=== PATIENT | male | born 1950 | race African-American/Black ===

== ENCOUNTER 2017-03-11 13:48 | Emergency (ER) | payer MEDICARE, OTHER ==
[~2017-03-11] VITALS: Ht 170.2 cm; Wt 54.4 kg
[2017-03-11 13:50] VITALS: BP 113/78
[2017-03-11] MEDS ORDERED: Ketorolac 30mg Inj IV ONE (14:00)
--- NOTE | 2017-03-11 14:06 | Emergency Room Report ---
History of Present Illness General Chief Complaint: Abdominal Pain Source: Patient Present Illness HPI [id number] with 4 weeks right sided abd pain. Intermittent, sharp. Non radiating. Assoc with intermittent constipation but had 2BMs yesterday Denies assoc nausea/vomiting, diarrhea, chest pain, SOB, headache, urinary complaints Denies other medical problems Takes Tylenol occasionally No previous surgery States he went to 3 hospitals in last 2 weeks - last was [facility]. Said labwork/CT done. "They didnt tell me nothing." Has no discharge papers. Doesnt know any results. Denies ETOH, drug use. Allergies: Coded Allergies: No Known Allergies (Unverified , 03/11/17) Patient History Past Medical History: none Past Surgical History: none Pertinent Family History: none Social History: Denies: smoking, alcohol use, drug use Immunizations: UTD Reviewed Nursing Documentation: PMH: Agreed, PSxH: Agreed Nursing Documentation-PMH Past Medical History: No Stated History Review of Systems All Other Systems: negative except mentioned in HPI Physical Exam Vital Signs Date Time Temp Pulse Resp B/P (MAP) Pulse Ox O2 Delivery O2 Flow Rate FiO2 03/11/17 13:40 97.9 88 16 116/78 99 Room Air Sp02 EP Interpretation: reviewed, normal General Appearance: normal inspection, well appearing, no apparent distress, alert, GCS 15, non-toxic, cachetic, thin, other - multiple enlarged joints, large skull, hands, feet Head: normocephalic, atraumatic Eyes: bilateral eye PERRL, bilateral eye EOMI ENT: normal ENT inspection, hearing grossly normal, normal voice Neck: normal inspection, full range of motion, supple, no bony tend Respiratory: normal inspection, lungs clear, normal breath sounds, no respiratory distress, no retraction, no wheezing Cardiovascular #1: regular rate, rhythm, no edema Gastrointestinal: normal inspection, normal bowel sounds, non tender, soft, no mass, no organomegaly, non-distended, no guarding, no hernia, no pulsatile mass , no rebound Genitourinary: no CVA tenderness Musculoskeletal: normal inspection, back normal, normal range of motion, Obey' s Sign negative Neurologic: normal inspection, alert, oriented x3, responsive, junior assistant manager III-XII nml as tested, motor strength/tone normal, speech normal Psychiatric: normal inspection, judgement/insight normal, mood/affect normal Medical Decision Making Medicare Attestation I Heaven Mari MD hereby attest that the medical record entry for date of service, 03/11/17 accurately reflects signatures/notations that I made in my capacity as MD when I treated/diagnosed the above listed Medicare beneficiary. I attest that this information is true, accurate and complete to the best of my knowledge. I understand that any falsification, omission, or concealment of material fact may subject me to administrative, civil, or criminal liability. This patient warrants hospital admission for extreme of age and has a condition that cannot be treated as outpatient. Diagnostic Impression: Primary Impression: Abdominal pain Qualified Codes: R10.84 - Generalized abdominal pain Additional Impressions: Hypercalcemia Infection due to trichomonas ER Course Generalized abd pain for 4 weeks Vitals stable. Afebrile Abd is non-focal 3 previous ED visits. [facility] faxed for records but not sent to ED by time of admission at 408pm. ?ST elevation in v3-4. Short QTc. Wide QRS. No reciprocal changes. Troponin 0. ASA given Spoke to URSULA at [facility] for concern for STEMI; did not think it warranted STEMI transfer; recommended I call transfer center for [facility] referral Spoke to Dr Ruiz from [facility] at [facility] who thinks interventricular delay/ wide QRS and delayed repol d/t hyperCa more likely cause of the EKG changes vs ACS especially given patient's habitus/history noted previously, duration of symptoms, and lack of active Chest pain/SOB currently. Serial ECG similar. No dynamic changes. Unlikely acute bacterial/surgical process given afebrile, no leuks, LFTs and Lipase normal. Well appearing UA for trichomonas - tx in ED Accepted for transfer to [facility] by Dr Phillips at 432pm EKG Diagnostic Results Rate: normal Rhythm: NSR ST Segments: other - Deep S waves with ST elevation in v3-4. No reciprocal changes ASA given to the pt in ED: No Rhythm Strip Diag. Results EP Interpretation: yes Rate: 85 Rhythm: NSR, no PVC's, no ectopy Chest X-Ray Diagnostic Results Chest X-Ray Diagnostic Results : Chest X-Ray Ordered: Yes # of Views/Limited/Complete: 1 View Indication: Chest Pain EP Interpretation: Yes Interpretation: no consolidation, no effusion, no pneumothorax, no acute cardiopulmonary disease Impression: No acute disease Interpreting ER Provider: Dr Heaven Mari MD Last Vital Signs Date Time Temp Pulse Resp B/P (MAP) Pulse Ox O2 Delivery O2 Flow Rate FiO2 03/11/17 13:40 97.9 88 16 116/78 99 Room Air Status: improved Disposition: ADMITTED INPATIENT Condition: HEAVEN Sylvester M.D. Mar 11, 2017 14:06
[2017-03-11 14:52] LABS: BASOPHILS % (AUTO) 0.7 % (0.0-2.0); EOSINOPHILS % (AUTO) 0.5 % (0.0-3.0); LYMPHOCYTES % (AUTO) 22.3 % (20.0-45.0); MEAN CORPUSCULAR HEMOGLOBIN 33.9 PG (27.0-31.0); MEAN CORPUSCULAR VOLUME 103 FL (80-99); MEAN PLATELET VOLUME 4.3 FL (6.5-10.1); MONOCYTES % (AUTO) 3.3 % (1.0-10.0); NEUTROPHILS % (AUTO) 73.3 % (45.0-75.0); PLATELET COUNT 309 K/UL (150-450); RED BLOOD COUNT 3.27 M/UL (4.70-6.10); RED CELL DISTRIBUTION WIDTH 11.8 % (11.6-14.8); TROPONIN I < 0.30 ng/mL (<=0.30); WHITE BLOOD COUNT 6.4 K/UL (4.8-10.8)
[2017-03-11 14:56] LABS: ALANINE AMINOTRANSFERASE 6 U/L (3-41); ALBUMIN/GLOBULIN RATIO 1.1 (1.0-2.7); ANION GAP 14 (5-15); ASPARTATE AMINO TRANSFERASE 15 U/L (5-40); CARBON DIOXIDE 24 mEQ/L (20-30); CHLORIDE 100 mEQ/L (98-107); CREATININE 1.1 mg/dL (0.7-1.2); GLOMERULAR FILTRATION RATE > 60 mL/min (>60); HEMOLYSIS 49; LIPASE 13 U/L (< 60); POTASSIUM 3.7 mEQ/L (3.4-4.9); SODIUM 138 mEQ/L (135-145)
[2017-03-11 14:57] LABS: CALCIUM 15.3 mg/dL (8.6-10.2)
[2017-03-11 14:59] LABS: APPEARANCE,URINE CLEAR; KETONES,URINE NEGATIVE (NEGATIVE); LEUKOCYTE ESTERASE ,URINE 2+ (NEGATIVE); NITRITE,URINE NEGATIVE (NEGATIVE); PH,URINE 6 (4.5-8.0); PROTEIN,URINE 1+ (NEGATIVE); UROBILINOGEN,URINE NORMAL MG/DL (0.0-1.0)
[2017-03-11 15:11] LABS: BACTERIA,URINE OCCASIONAL /HPF; RBC,URINE 0-2 /HPF (0 - 0); SQUAMOUS EPITHELIAL CELL,UR OCCASIONAL /LPF (NONE/OCC)
[2017-03-11 15:12] LABS: TRICHOMONAS,URINE FEW /HPF
[2017-03-11 15:30] VITALS: BP 133/80
[2017-03-11] MEDS ORDERED: Morphine Sulfate 2mg/ml Inj IVP ONE (15:30)
--- NOTE | 2017-03-11 15:34 | Diagnostic Imaging Report ---
Indication: Dyspnea Comparison: None A single view chest radiograph was obtained. Findings: No definite infiltrate or pulmonary vascular congestion identified. There is minimal right basal atelectasis. The heart is borderline enlarged. The aorta is mildly enlarged consistent with atherosclerotic vascular disease. The bones are osteopenic. Impression: No acute disease
[2017-03-11] MEDS ORDERED: IBUPROFEN600 MG ORAL (16:16)
[2017-03-11] MEDS ORDERED: metroNIDAZOLE 500mg tab ORAL ONE (16:30)
[2017-03-11 17:20] VITALS: BP 126/82
--- NOTE | 2017-03-13 12:42 | Cardiology Report ---
APPROVED REPORT EKG Measurement Heart [id number] Normal sinus rhythm Nonspecific T wave abnormality Abnormal ECG
--- NOTE | 2017-03-13 12:42 | Cardiology Report ---
APPROVED REPORT EKG Measurement Heart [id number] Normal sinus rhythm Nonspecific T wave abnormality Abnormal ECG
== END 2017-03-11 17:25 | disposition short-term general hospital (02) ==
LOC: EDBD 13:48 → EMR 14:20 → EDBEDREQ 16:20 → EMR 17:25
DX: R10.9 Unspecified abdominal pain (principal); E83.52 Hypercalcemia; A59.9 Trichomoniasis, unspecified
CPT/HCPCS: 36415; 71010; 80053; 81003; 83690; 84484; 85025; 87081; 93005; 96361; 96374; 96375; 99285; J2270